=== PATIENT | male | born 2000 | race Hispanic/Latino ===

== ENCOUNTER 2020-12-17 05:26 | Emergency (ER) | payer BC ==
--- NOTE | 2020-12-17 06:35 | Event Note ---
ED Screening Note Date of service: 12/17/20 Time: 06:34 ED Screening Note: Patient complains of right hand pain after fall last night This initial assessment/diagnostic orders/clinical plan/treatment(s) is/are subject to change based on patients health status, clinical progression and re-assessment by fellow clinical providers in the ED. Further treatment and workup at subsequent clinical providers discretion. Patient/guardian urged not to elope from the ED as their condition may be serious if not clinically assessed and managed. Initial orders include: X-ray
--- NOTE | 2020-12-17 07:12 | XRay Report ---
RIGHT HAND 3 VIEW(S) INDICATION / CLINICAL INFORMATION: fifth MC pain after fall injury COMPARISON: None available. FINDINGS: BONES / JOINT(S): Acute mildly displaced fracture involving base of little finger metacarpal No signi ficant arthritis. SOFT TISSUES: No significant abnormality. ADDITIONAL FINDINGS: None. Signer Name: Rob Smith MD Signed: 12/17/2020 7:08 AM Workstation Name: [id number]
[2020-12-17 07:48] VITALS: BP 136/79
--- NOTE | 2020-12-17 07:52 | Emergency Department Report ---
ED Upper Extremity Inj HPI - General Chief Complaint: Extremity Injury, Upper Stated Complaint: POSSIBLE CONCUSSION; FINGER INJURY Time Seen by Provider: 12/17/20 05:53 Source: patient Mode of arrival: Ambulatory Limitations: No Limitations - History of Present Illness Initial Comments: This is a 20-year-old male nontoxic, well nourished in appearance, no acute signs of distress presents to the ED with c/o of left fifth finger pain x1 day patient stated that he had a mechanical trip and fall the left finger. Patient denies any other trauma. Patient denies any numbness, tingling, fever, chills, nausea, vomiting, chest pain, shortness of breath, headache, stiff neck. Patient denies any joint swelling or joint redness. Patient denies decreased range of motion but does have pain. Patient denies any allergies or significant past medical history. MD Complaint: Injury to:: left, finger -: days(s) Other Extremity Injury: Fingers: Left Severity scale (0 -10): 8 Improves With: immobilization Worsens With: movement of extremity Context: fall Associated Symptoms: denies other symptoms. denies: weakness, numbness, neck pain, suspects foreign body, nausea/vomiting, heard/felt popping sensat - Related Data Previous Rx's Medication Instructions Recorded Last Taken Type Naproxen 500 mg PO Q12H PRN #12 tablet 12/17/20 Unknown Rx ED Review of Systems ROS: Stated complaint: POSSIBLE CONCUSSION; FINGER INJURY Other details as noted in HPI Comment: All other systems reviewed and negative Constitutional: denies: chills, fever Eyes: denies: eye pain, eye discharge, vision change ENT: denies: ear pain, throat pain Respiratory: denies: cough, shortness of breath, wheezing Cardiovascular: denies: chest pain, palpitations Endocrine: no symptoms reported Gastrointestinal: denies: abdominal pain, nausea, diarrhea Genitourinary: denies: urgency, dysuria Musculoskeletal: denies: back pain, joint swelling, arthralgia Skin: denies: rash, lesions Neurological: denies: headache, weakness, paresthesias Psychiatric: denies: anxiety, depression Hematological/Lymphatic: denies: easy bleeding, easy bruising ED Past Medical Hx - Past Medical History Previous Medical History?: No - Surgical History Past Surgical History?: Yes Additional Surgical History: "Surgery to remove a benign mole" - Social History Smoking Status: Never Smoker Substance Use Type: None - Medications Home Medications: Home Medications Medication Instructions Recorded Confirmed Last Taken Type Naproxen 500 mg PO Q12H PRN #12 tablet 12/17/20 Unknown Rx ED Physical Exam - General Limitations: No Limitations General appearance: alert, in no apparent distress - Head Head exam: Present: atraumatic, normocephalic - Eye Eye exam: Present: normal appearance - Neck Neck exam: Present: normal inspection, full ROM - Respiratory Respiratory exam: Absent: respiratory distress - Cardiovascular Cardiovascular Exam: Present: regular rate - Extremities Exam Extremities exam: Present: normal inspection, full ROM, tenderness, normal capillary refill. Absent: joint swelling - Expanded Upper Extremity Exam Left General: Present: normal inspection Shoulder Exam: Present: normal inspection, full ROM. Absent: tenderness, swelling Upper Arm exam: Present: normal inspection, full ROM. Absent: tenderness, swelling Elbow exam: Present: normal inspection, full ROM. Absent: tenderness, swelling Forearm Wrist exam: Present: normal inspection, full ROM. Absent: tenderness, swelling, abrasion, laceration, ecchymosis, deformity, crepidus, dislocation, erythema, tenderness over anatomical snuff box, pain with axial thumb loading Hand Wrist exam: Present: full ROM, tenderness, swelling, ecchymosis. Absent: abrasion, laceration, deformity, crepidus, dislocation, erythema, amputation, nail avulsion, subungual hematoma Vascular: Present: normal capillary refill. Absent: vascular compromise (Neurovascular within normal limits) - Back Exam Back exam: Present: normal inspection, full ROM. Absent: tenderness, CVA tenderness (R), CVA tenderness (L), muscle spasm, paraspinal tenderness, vertebral tenderness, rash noted - Neurological Exam Neurological exam: Present: alert, oriented X3, normal gait - Psychiatric Psychiatric exam: Present: normal affect, normal mood - Skin Skin exam: Present: warm, dry, intact, normal color. Absent: rash ED Course Vital Signs 12/17/20 05:39 Temperature 98.4 F Pulse Rate 91 H Respiratory 16 Rate Blood Pressure 136/79 O2 Sat by Pulse 99 Oximetry - Reevaluation(s) Reevaluation #1: 12/17/20 07:49 Patient is speaking in full sentences with no signs of distress noted. ED Medical Decision Making - Medical Decision Making This is a 20-year-old male that presents with left fifth finger fracture. Patient is stable and was examined by me. X-ray has been obtained and dictated by the radiologist. Patient is notified of the x-ray report with noted by the patient. Patient received a frog metal splint to left fifth finger. Post splint assessment: neurovasular intact; normal cap refill <2 second; normal sensation; denies decreaed sensation; normal ROM of digits. Patient was instructed to RICE therapy. Patient is discharged with Motrin. At time of discharge, the patient does not seem toxic or ill in appearance. No acute signs of distress noted. Patient agrees to discharge treatment plan of care. No further questions noted by the patient. Critical care attestation.: If time is entered above; I have spent that time in minutes in the direct care of this critically ill patient, excluding procedure time. ED Disposition Clinical Impression: Finger fracture, left Qualifiers: Encounter type: initial encounter Finger: little finger Fracture type: closed Phalanx: unspecified phalanx Fracture alignment: nondisplaced Qualified Code(s): S62.607A - Fracture of unspecified phalanx of left little finger, initial encounter for closed fracture Disposition: DC-01 TO HOME OR SELFCARE Is pt being admited?: No Does the pt Need Aspirin: No Condition: Stable Instructions: Finger Fracture, Adult, [id number], RICE Therapy for Routine Care of Injuries, [id number] Additional Instructions: Follow-up with a orthopedic doctor in 3-5 days or if symptoms worsen and continue return to emergency room as soon as possible. No physical activity that extremity until cleared by orthopedic doctor Prescriptions: Naproxen 500 mg PO Q12H PRN #12 tablet PRN Reason: Pain , Severe (7-10) Referrals: PRIMARY MD BINTA [Primary Care Provider] - 3-5 Days CASH COBB MD [Staff Physician] - 3-5 Days Forms: Work/School Release Form(ED) Time of Disposition: 07:52
== END 2020-12-17 08:15 | disposition home or self-care (01) ==
LOC: ED 05:26
DX: S62.637A Displaced fracture of distal phalanx of left little finger, initial encounter for closed fracture (principal); Z98.890 Other specified postprocedural states; Z79.899 Other long term (current) drug therapy; W01.0XXA Fall on same level from slipping, tripping and stumbling without subsequent striking against object, initial encounter; Y93.89 Activity, other specified; Y92.89 Other specified places as the place of occurrence of the external cause; Y99.8 Other external cause status